=== PATIENT | female | born 1970 | race Asian ===

== ENCOUNTER 2023-05-07 08:27 | Emergency (ER) | payer MEDICARE, SELFPAY ==
[2023-05-07 08:32] VITALS: BP 108/82; PULSE 84; RESP 16; TEMP 36.8; O2SAT 98; BMI 30.9
--- NOTE | 2023-05-07 08:48 | PC.NURSE ---
Pt requesting the DrAngela to evaluate her meds and adjust them. I informed Dr. Umana of this request
--- NOTE | 2023-05-07 08:56 | ED_ITS ---
HPI - Psych General Chief Complaint: Psychiatric Symptoms Stated Complaint: mental health/ BIpolar Time Seen by Provider: 05/07/23 08:30 Source: patient and family Mode of arrival: Ambulatory History of Present Illness HPI Narrative: 52-year-old female with reported history of bipolar depression, PTSD, anxiety presents with total body pain, rectal pain, I think I'm having kerri. Patient was at [facility] several days ago for same, she states that they were looking for placement for her, but I couldn't wait anymore and she left. She is here today to request a change in her medications. She takes Prazosin, Klonopin, Trazodone, Seroquel, Depakote. Reports compliance with her medications. Denies suicidal or homicidal ideation. Patient did sleep last night after taking her usual medications. Related Data Allergies Allergy/AdvReac Type Severity Reaction Status Date / Time No Known Drug Allergies Allergy Verified 05/07/23 08:38 Review of Systems Review of Systems Narrative: Negative except as noted above Patient History Social History Smoking Status: Current some day smoker Smoking Status: Current some day smoker alcohol intake frequency: a few times a month Substance Use Type: does not use Exam Initial Vital Signs Initial Vital Signs: Vital Signs Temperature 98.2 F 05/07/23 08:32 Pulse Rate 84 05/07/23 08:32 Respiratory Rate 16 05/07/23 08:32 Blood Pressure 108/82 05/07/23 08:32 Pulse Oximetry 98 05/07/23 08:32 Oxygen Delivery Method Room Air 05/07/23 08:32 Const: Awake, alert, no acute distress, nontoxic appearing Eyes: PERRL, EOMI, conjunctiva normal ENT: Atraumatic, dentition normal, mucous membranes moist Cardiac: regular rate, regular rhythm RESP: unlabored, clear bilaterally, no wheezing GI: Atraumatic, soft, nontender, nondistended, no rebound, no guarding MSK: Atraumatic, full range of motion, pulses equal Skin: Warm, Dry, intact, no rashes Neuro: AO x3, CN II-XII grossly intact, moves all extremities Psych: flat affect, mood normal, speech not pressured, does not appear to respond to internal stimuli, not suicidal, not homicidal Course Course Course Narrative: Patient requesting psychiatric medication changes. Was previously in line for voluntary psychiatric placement but left because she was dissatisfied with the wait time at another hospital. Patient takes numerous psychiatric medications including Seroquel, Depakote, Abilify, prazosin, trazodone, Klonopin. With patient's history I can not in good confidence adjust these medications appropriately for the patient as this is outside of my scope of practice. We do not have tele psychiatry here, however social work agrees to speak with the patient. Orders Ordered: ED Orders 05/07/23 08:58 EKG-12 Lead Stat 05/07/23 08:59 Refer to [facility] Urgent 05/07/23 09:01 Consult to HOUSE CARPENTER HELPER - Sap Functional Analyst Urgent 05/07/23 09:10 Acetaminophen Stat CBC Auto Diff [Complete Blood Count AUTO DIFF] Stat CMP [Comprehensive Metabolic Panel] Stat Ethanol (ETOH) Stat Salicylate Stat TSH [Thyroid Stimulating Hormone] Stat 05/07/23 09:45 Urine Drug Screen, Rapid Stat 05/07/23 09:55 COVID19 -Nasal RAPID Stat Urine Microscopic Stat Reevaluation(s) Reevaluation #1: Patient is COVID-19 positive. She was COVID-19 negative several days ago, she states that in the days since she was seen at [facility] she went to numerous public places where she may have contracted COVID. Unfortunately due to her COVID-19 positive status we will not be able to place the patient in any inpatient psychiatric facility. Social work was able to provide resources to the patient and help to ensure a follow up appointment with primary care physician. Social work able to arrange a next a telehealth visit. Patient discharged home in safe and stable condition. Vital Signs Vital signs: Vital Signs - 8 hr 05/07/23 08:32 Temperature 98.2 F Pulse Rate 84 Respiratory Rate 16 Blood Pressure 108/82 Pulse Oximetry 98 Oxygen Delivery Method Room Air MDM - Psych Lab Data 05/07/23 09:10 05/07/23 09:10 Labs: Lab Results 05/07/23 05/07/23 05/07/23 Range/Units 09:10 09:45 09:55 WBC 9.6 (4.5-11.0) X10^3/uL RBC 4.16 (4.0-5.2) X10^6/uL Hgb 13.3 (12.0-16.0) g/dL Hct 38.3 (36-46) % MCV 92.1 (80-100) fL MCH 32.0 (26-34) PG MCHC 34.7 (30-36) % RDW 13.1 (11.6-14.8) % Plt Count 277 (150-400) X10^3/uL Neut % (Auto) 85.3 H (50-75) % Lymph % (Auto) 10.0 L (25-40) % [place] % (Auto) 3.8 (3-14) % Eos % (Auto) 0.5 L (2-4) % Baso % (Auto) 0.4 (0-2) % Neut # (Auto) 8200 H (5065-3711) /uL Lymph # (Auto) 1000 L (6481-6784) /uL [place] # (Auto) 400 (0-900) /uL Eos # (Auto) 100 (0-450) /uL Baso # (Auto) 0 (0-100) /uL Sodium 132 L (137-145) mmol/L Potassium 4.1 (3.4-5.1) mmol/L Chloride 102 (98-107) mmol/L Carbon Dioxide 22 (22-32) mmol/L BUN 12 (7-17) mg/dL Creatinine 0.82 (0.52-1.04) mg/dL Estimated GFR > 60 (>60) mL/min BUN/Creatinine Ratio 14.6 (6-22) Glucose 137 H (70-100) mg/dL Calcium 9.6 (8.4-10.2) mg/dL Total Bilirubin 0.6 (0.2-1.3) mg/dL AST 33 (14-36) IU/L ALT 15 (<35) IU/L Alkaline Phosphatase 48 (38-126) U/L Total Protein 7.3 (6.3-8.2) g/dL Albumin 4.1 (3.5-5.0) g/dL Globulin 3.2 (1.7-4.1) g/dL Albumin/Globulin Ratio 1.3 (1.0-2.8) TSH 0.685 (0.47-4.68) uIU/mL Urine RBC None seen (0-5/HPF) Urine WBC None seen (0-5/HPF) Ur Squamous Epith Cells 1-5 /hpf (0-5/HPF) Amorphous Sediment 1+ Urine Bacteria None seen (None) Ur Culture Indicated? Cult not indicated Salicylates < 1.0 (<20) mg/dL U Opiates 300ng/mL cut Negative (Negative) Ur Oxycodone Screen Negative (Negative) Urine Methadone Screen Negative (Negative) Acetaminophen < 10 (10-30) ug/mL Ur Barbiturates Screen Negative (Negative) U Tricyclic Antidepress Positive H (Negative) Ur Phencyclidine Scrn Negative (Negative) Ur Amphetamines Screen Negative (Negative) U Methamphetamines Scrn Negative (Negative) Ur MDMA Scrn (Ecstasy) Negative (Negative) U Benzodiazepines Scrn Negative (Negative) Urine Cocaine Screen Negative (Negative) U Marijuana (THC) Screen Negative (Negative) Ethyl Alcohol < 10 ( - 10) mg/dL SARS-CoV-2 (PCR) Positive H (Negative) Point of Care Testing Test Results Negative Urine Dip Bedside Urine Glucose Negative Bedside Urine Bilirubin - Negative Bedside Urine Ketone +/- 5 Urine Specific [place] 1.005 Bedside Urine Occult Blood - Negative Bedside Urine pH 9 Bedside Urine Protein + 30 Bedside Urine Urobilinogen - Negative Bedside Urine Nitrite - Negative Bedside Urine Leukocytes - Negative Esterase Discharge Plan Departure Patient Disposition: Home Clinical Impression: Bipolar disorder Qualifiers: Active/Remission status: remission status unspecified Qualified Code(s): F31.9 - Bipolar disorder, unspecified Instructions: DI for Bipolar Disorder Referrals: China Arguelles PA-C [Primary Care Provider] - Stand Alone Forms: Patient Portal/API
[2023-05-07 09:21] LABS: Add Manual Diff / Slide Review NO; Basophils Absolute Auto 0 /uL (0-100); Basophils Percent Auto 0.4 % (0-2); Eosinophils Absolute Auto 100 /uL (0-450); Eosinophils Percent Auto 0.5 % (2-4); Hematocrit 38.3 % (36-46); Hemoglobin 13.3 g/dL (12.0-16.0); Lymphocytes Absolute Auto 1000 /uL (1100-4500); Mean Corpuscular HGB Conc 34.7 % (30-36); Mean Corpuscular Volume 92.1 fL (80-100); Monocytes Absolute Auto 400 /uL (0-900); Monocytes Percent Auto 3.8 % (3-14); Neutrophils Absolute Auto 8200 /uL (1500-7000); Neutrophils Percent Auto 85.3 % (50-75); Platelet Count 277 X10^3/uL (150-400); Red Blood Cell Count 4.16 X10^6/uL (4.0-5.2); Red Cell Distribution Width 13.1 % (11.6-14.8); White Blood Cell Count 9.6 X10^3/uL (4.5-11.0)
[2023-05-07 09:30] LABS: Acetaminophen < 10 ug/mL (10-30); Alanine Aminotransferase 15 IU/L (<35); Albumin 4.1 g/dL (3.5-5.0); Albumin Globulin Ratio 1.3 (1.0-2.8); Alkaline Phosphatase 48 U/L (38-126); Aspartate Aminotransferase 33 IU/L (14-36); BUN Creatinine Ratio 14.6 (6-22); Bilirubin Total 0.6 mg/dL (0.2-1.3); Blood Urea Nitrogen 12 mg/dL (7-17); Calcium 9.6 mg/dL (8.4-10.2); Carbon Dioxide 22 mmol/L (22-32); Chloride 102 mmol/L (98-107); Estimated Glomerular Filt Rate > 60 mL/min (>60); Ethanol (ETOH) < 10 mg/dL; Globulin 3.2 g/dL (1.7-4.1); Glucose 137 mg/dL (70-100); HEMOLYSIS 85 (0-50); Potassium 4.1 mmol/L (3.4-5.1); Salicylate < 1.0 mg/dL (<20); Sodium 132 mmol/L (137-145); Total Protein 7.3 g/dL (6.3-8.2)
[2023-05-07 09:52] LABS: UR Morphine/Opiate cutoff 300 Negative (Negative); Ur Creatinine Normal (Normal); Ur Specific Gravity Normal (Normal); Urine Amphetamines Negative (Negative); Urine Barbiturates Negative (Negative); Urine Benzodiazepines Negative (Negative); Urine Cocaine Negative (Negative); Urine MDMA Negative (Negative); Urine Methadone Negative (Negative); Urine Methamphetamines Negative (Negative); Urine Oxycodone Negative (Negative); Urine Phencyclidine Negative (Negative); Urine Tetrahydrocannabinol Negative (Negative); Urine Tricyclic Antidepressant Positive (Negative); Urine pH Normal (Normal)
[2023-05-07 10:00] LABS: Bacteria Urine None Seen; Culture Indicated Urine Cult Not Indicated; RBC Urine None Seen (0-5/HPF); Squamous Epithelial Cell Urine 1-5 /HPF (0-5/HPF); WBC Urine None Seen (0-5/HPF)
[2023-05-07 10:01] LABS: Amorphous Sediment Urine 1+
[2023-05-07 10:03] LABS: Thyroid Stimulating Hormone 0.685 uIU/mL (0.47-4.68)
[2023-05-07 10:43] LABS: COVID19 -Nasal RAPID POSITIVE (Negative)
[2023-05-07 13:35] VITALS: BP 112/76; PULSE 90; RESP 18; O2SAT 98
--- NOTE | 2023-05-07 13:54 | CM.SWNOTE ---
ED IRON PILER Assessment Note Patient is 52 y/o female who presents to ED due to concern for Bipolar Symptoms. Patient endorses she went to [facility] ED last week for simliar presentation and was seeking inpatient but patient left ED before being placed. At this presentation to the ED, patient tests positive for Covid and will not be accepted at hospitals. IRON PILER enters room to meet with patient. Present in room is patient's brother, patient gives consent for him to be present. Patient presents as A/Ox4, euthymic, full range. Patient endorses concern for PTSD, memories and thoughts coming up and concern for her medication management. Patient endorses that her therapist no longer takes her insurance because her insurance changed recently. Patient denies SI or HI. Patient states that she has an upcoming PCP appt at [facility] for 05/09/23 regarding medication management. Patient endorses that she planned to cancel the appt due to covid dx. IRON PILER encourages patient to keep appt and request a telehealth appt. IRON PILER calls [facility] with patient's consent to request telehealth appt. It is reported that they can schedule telehealth appt with patient's PCP for Thursday 05/10. IRON PILER reviews this with patient who indicates agreement and understanding. Patient endorses safety upon d/c and states she can rest at home and recover from covid symptoms and f/u with PCP via telehealth. IRON PILER provides patient with list of MH providers that accept her insurance. It is the opinion of this IRON PILER that patient is safe to d/c to home. ED provider indicates agreement and understanding. Plan: Patient to d/c to home upon medical clearance, patient to f/u with PCP and patient to seek new MH provider. SANDRA SotoSW
== END 2023-05-07 13:36 | disposition home or self-care (01) ==
PROVIDERS: Emergency Provider Emergency Medicine; PCP Physician Assistant
DX: F31.9 Bipolar disorder, unspecified (principal); K62.89 Other specified diseases of anus and rectum; U07.1 COVID-19
CPT/HCPCS: 80053; 80305; 80320; 80329; 81003; 81015; 81025; 84443; 85025; 87635; 99283; C9803; G0480

== ENCOUNTER 2023-05-24 11:45 | Emergency (ER) | payer MEDICARE, SELFPAY ==
[2023-05-24 11:48] VITALS: BP 128/98; PULSE 103; RESP 18; TEMP 36.4; O2SAT 97; BMI 29.7
[2023-05-24 12:22] LABS: Ur Creatinine Normal (Normal); Ur Specific Gravity Normal (Normal); Urine pH Normal (Normal)
[2023-05-24 12:23] LABS: UR Morphine/Opiate cutoff 300 Negative (Negative); Urine Amphetamines Negative (Negative); Urine Barbiturates Negative (Negative); Urine Benzodiazepines Negative (Negative); Urine Cocaine Negative (Negative); Urine MDMA Negative (Negative); Urine Methadone Negative (Negative); Urine Methamphetamines Negative (Negative); Urine Oxycodone Negative (Negative); Urine Phencyclidine Negative (Negative); Urine Tetrahydrocannabinol Negative (Negative); Urine Tricyclic Antidepressant Positive (Negative)
[2023-05-24 12:24] LABS: COVID19 -Nasal RAPID Negative (Negative)
--- NOTE | 2023-05-24 12:33 | ED_ITS ---
HPI - Psych General Chief Complaint: Psychiatric Symptoms Stated Complaint: needs treatment for mental health issues Time Seen by Provider: 05/24/23 11:55 Source: patient Mode of arrival: Ambulatory History of Present Illness HPI Narrative: Patient is a 52-year-old female. Has a history of PTSD, anxiety, schizophrenia and bipolar disorder. She is been admitted to the hospital multiple times in the past. All of her medication management right now is being handled by her primary doctor whom she saw by dontrell approximately 2 weeks ago. She states that for the past several weeks she is had escalation in the auditory hallucinations and the crying and depression and anxiety. She is not suicidal. Not homicidal. She does not currently have a therapist or a psychiatrist. She stated that her psychiatrist left the practice that she was seeing and her insurance no longer covers the therapist she is to be seeing. She was seen here in the emergency department 2 weeks ago. She was COVID positive so could not be placed anywhere. Subsequently discharged home. She stated that she attempted to contact multiple numbers on the information that she was provided by us for follow-up for mental health but has not heard a call back from any of those facilities. She states that the voices are becoming more intrusive. They are telling her that she is both God, Louis, Vandana and other medical characters. She is very much hoping for admission to the hospital for treatment of her symptoms as they are becoming very distressing for her. Related Data Home Medications Medication Instructions Recorded Confirmed clonazepam 0.5 mg tablet 0.5 mg PO BEDTIME 05/24/23 05/24/23 divalproex 500 mg tablet,extended 1,000 mg PO ONCE PM 05/24/23 05/24/23 release 24 hr ferrous sulfate 325 mg (65 mg 325 mg PO QPM 05/24/23 05/24/23 iron) tablet magnesium 200 mg tablet 800 mg PO QPM 05/24/23 05/24/23 metformin 500 mg tablet,extended 500 mg PO QPM 05/24/23 05/24/23 release 24 hr potassium 99 mg tablet 99 mg PO QPM 05/24/23 05/24/23 prazosin 2 mg capsule 4 mg PO QPM 05/24/23 05/24/23 quetiapine 150 mg tablet,extended 150 mg PO QPM 05/24/23 05/24/23 release 24 hr rosuvastatin 5 mg tablet 5 mg PO ONCE PM 05/24/23 05/24/23 trazodone 150 mg tablet 150 mg PO ONCE PM PRN insomnia 05/24/23 05/24/23 Allergies Allergy/AdvReac Type Severity Reaction Status Date / Time No Known Drug Allergies Allergy Verified 05/07/23 08:38 Review of Systems Cardiovascular Comments: Denies chest pain Respiratory Comments: Denies shortness of breath Gastrointestinal Comments: Denies abdominal pain Psychiatric Psychiatric: Reports system reviewed and no additional complaints, except as documented Patient History Social History Smoking Status: Current some day smoker Smoking Status: Current some day smoker tobacco type: cigars alcohol intake frequency: a few times a month Substance Use Type: does not use Exam Initial Vital Signs Initial Vital Signs: Vital Signs Temperature 97.5 F L 05/24/23 11:48 Pulse Rate 103 H 05/24/23 11:48 Respiratory Rate 18 05/24/23 11:48 Blood Pressure 128/98 H 05/24/23 11:48 Pulse Oximetry 97 05/24/23 11:48 Oxygen Delivery Method Room Air 05/24/23 11:48 HENMT Head: normal to inspection and normocephalic Resp Effort & Inspection: normal respiratory effort Cardio Rate: regular rate GI Inspection: normal to inspection Neuro General: patient alert, patient awake, patient oriented x3 and moves all extremities Psych Other: Patient is cooperative, calm, is having auditory hallucinations, no suicidal or homicidal thoughts. Course Orders Ordered: ED Orders 05/24/23 12:00 COVID19 -Nasal RAPID Stat 05/24/23 12:09 Consult to EXECUTIVE RECEPTIONIST - Camera Person Stat 05/24/23 12:17 Urine Drug Screen, Rapid Stat 05/24/23 12:45 Acetaminophen Stat Complete Blood Count AUTO DIFF Stat Comprehensive Metabolic Panel Stat Ethanol (ETOH) Stat Free T4, Direct Thyroxine Stat Salicylate Stat Thyroid Stimulating Hormone Stat Valproic Acid (Depakene) Total Stat Vital Signs Vital signs: Vital Signs - 8 hr 05/24/23 11:48 Temperature 97.5 F L Pulse Rate 103 H Respiratory Rate 18 Blood Pressure 128/98 H Pulse Oximetry 97 Oxygen Delivery Method Room Air MDM - Psych Lab Data 05/24/23 12:45 05/24/23 12:45 Labs: Lab Results 05/24/23 05/24/2323 Range/Units 12:00 12:17 12:45 WBC 7.8 (4.5-11.0) X10^3/uL RBC 3.91 L (4.0-5.2) X10^6/uL Hgb 12.6 (12.0-16.0) g/dL Hct 36.2 (36-46) % MCV 92.6 (80-100) fL MCH 32.2 (26-34) PG MCHC 34.7 (30-36) % RDW 13.0 (11.6-14.8) % Plt Count 258 (150-400) X10^3/uL Neut % (Auto) 71.7 (50-75) % Lymph % (Auto) 18.8 L (25-40) % [place] % (Auto) 6.6 (3-14) % Eos % (Auto) 2.3 (2-4) % Baso % (Auto) 0.6 (0-2) % Neut # (Auto) 5600 (3648-0449) /uL Lymph # (Auto) 1500 (3127-7296) /uL [place] # (Auto) 500 (0-900) /uL Eos # (Auto) 200 (0-450) /uL Baso # (Auto) 0 (0-100) /uL Sodium 136 L (137-145) mmol/L Potassium 3.9 (3.4-5.1) mmol/L Chloride 102 (98-107) mmol/L Carbon Dioxide 25 (22-32) mmol/L BUN 14 (7-17) mg/dL Creatinine 0.93 (0.52-1.04) mg/dL Estimated GFR > 60 (>60) mL/min BUN/Creatinine Ratio 15.1 (6-22) Glucose 127 H (70-100) mg/dL Calcium 9.3 (8.4-10.2) mg/dL Total Bilirubin 0.5 (0.2-1.3) mg/dL AST 18 (14-36) IU/L ALT 13 (<35) IU/L Alkaline Phosphatase 51 (38-126) U/L Total Protein 6.9 (6.3-8.2) g/dL Albumin 3.9 (3.5-5.0) g/dL Globulin 3.0 (1.7-4.1) g/dL Albumin/Globulin Ratio 1.3 (1.0-2.8) TSH 1.76 D (0.47-4.68) uIU/mL Free T4 1.22 (0.78-2.19) ng/dL Salicylates < 1.0 (<20) mg/dL U Opiates 300ng/mL cut Negative (Negative) Ur Oxycodone Screen Negative (Negative) Urine Methadone Screen Negative (Negative) Acetaminophen < 10 (10-30) ug/mL Ur Barbiturates Screen Negative (Negative) U Tricyclic Antidepress Positive H (Negative) Ur Phencyclidine Scrn Negative (Negative) Ur Amphetamines Screen Negative (Negative) U Methamphetamines Scrn Negative (Negative) Ur MDMA Scrn (Ecstasy) Negative (Negative) U Benzodiazepines Scrn Negative (Negative) Urine Cocaine Screen Negative (Negative) U Marijuana (THC) Screen Negative (Negative) Ethyl Alcohol < 10 ( - 10) mg/dL SARS-CoV-2 (PCR) Negative (Negative) Point of Care Testing Test Results Negative Urine Dip Bedside Urine Glucose Negative Bedside Urine Bilirubin - Negative Bedside Urine Ketone - Negative Urine Specific [place] 1.015 Bedside Urine Occult Blood - Negative Bedside Urine pH 6.5 Bedside Urine Protein - Negative Bedside Urine Urobilinogen +/- 1mg Bedside Urine Nitrite - Negative Bedside Urine Leukocytes - Negative Esterase MDM Narrative Medical decision making narrative: Patient is calm, cooperative, does endorse auditory hallucinations. No SI or HI. Was seen by social work. She is medically cleared. Was accepted at [facility]. Patient is stable for discharge. Continues to be voluntary. Discharge Plan Departure Patient Disposition: Xfer Psychiatric Hosp Clinical Impression: Bipolar disorder, Auditory hallucinations Prescriptions: No Action clonazepam 0.5 mg tablet 0.5 mg PO BEDTIME trazodone 150 mg tablet 150 mg PO ONCE PM PRN (Reason: insomnia) divalproex 500 mg tablet extended release 24 hr 1,000 mg PO ONCE PM metformin 500 mg Tablet Extended Release 24 Hr 500 mg PO QPM prazosin 2 mg Capsule 4 mg PO QPM rosuvastatin 5 mg tablet 5 mg PO ONCE PM quetiapine 150 mg tablet extended release 24 hr 150 mg PO QPM potassium 99 mg Tablet 99 mg PO QPM ferrous sulfate [FerrouSul] 325 mg (65 mg iron) Tablet 325 mg PO QPM magnesium 200 mg Tablet 800 mg PO QPM Referrals: China Arguelles PA-C [Primary Care Provider] -
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
[2023-05-24 12:50] LABS: Add Manual Diff / Slide Review NO; Basophils Absolute Auto 0 /uL (0-100); Basophils Percent Auto 0.6 % (0-2); Eosinophils Absolute Auto 200 /uL (0-450); Eosinophils Percent Auto 2.3 % (2-4); Hematocrit 36.2 % (36-46); Hemoglobin 12.6 g/dL (12.0-16.0); Lymphocytes Absolute Auto 1500 /uL (1100-4500); Lymphocytes Percent Auto 18.8 % (25-40); Mean Corpuscular HGB Conc 34.7 % (30-36); Mean Corpuscular Hemoglobin 32.2 PG (26-34); Mean Corpuscular Volume 92.6 fL (80-100); Monocytes Absolute Auto 500 /uL (0-900); Monocytes Percent Auto 6.6 % (3-14); Neutrophils Absolute Auto 5600 /uL (1500-7000); Neutrophils Percent Auto 71.7 % (50-75); Platelet Count 258 X10^3/uL (150-400); Red Blood Cell Count 3.91 X10^6/uL (4.0-5.2); White Blood Cell Count 7.8 X10^3/uL (4.5-11.0)
[2023-05-24 13:02] LABS: Acetaminophen < 10 ug/mL (10-30); Alanine Aminotransferase 13 IU/L (<35); Albumin 3.9 g/dL (3.5-5.0); Albumin Globulin Ratio 1.3 (1.0-2.8); Alkaline Phosphatase 51 U/L (38-126); Aspartate Aminotransferase 18 IU/L (14-36); BUN Creatinine Ratio 15.1 (6-22); Bilirubin Total 0.5 mg/dL (0.2-1.3); Blood Urea Nitrogen 14 mg/dL (7-17); Calcium 9.3 mg/dL (8.4-10.2); Carbon Dioxide 25 mmol/L (22-32); Chloride 102 mmol/L (98-107); Estimated Glomerular Filt Rate > 60 mL/min (>60); Ethanol (ETOH) < 10 mg/dL; Glucose 127 mg/dL (70-100); HEMOLYSIS < 15 (0-50); Potassium 3.9 mmol/L (3.4-5.1); Salicylate < 1.0 mg/dL (<20); Sodium 136 mmol/L (137-145); Total Protein 6.9 g/dL (6.3-8.2)
[2023-05-24 13:18] LABS: Free T4, Direct Thyroxine 1.22 ng/dL (0.78-2.19)
[2023-05-24 13:32] LABS: Thyroid Stimulating Hormone 1.76 uIU/mL (0.47-4.68)
--- NOTE | 2023-05-24 14:29 | CM.SWNOTE ---
GLOST TILE SHADER Note GLOST TILE SHADER calls [facility] intake, it is reported that they have beds and can review patient. GLOST TILE SHADER faxes clinicals for review. [place] calls back and Penelope in intake reports that patient has been accepted by JAMIE Dunn at the [facility]. Patient can arrive at hospital at 1999, RN to RN ph. # is [phone]. GLOST TILE SHADER reviews this with patient who indicates agreement and understanding. GLOST TILE SHADER sets up transportation for 1845 warehouse picker time. Plan: Patient to transfer to [facility] for inpatient hospitalization this evening. SANDRA SotoSW
[2023-05-24 18:46] VITALS: BP 135/76; PULSE 107; RESP 18; O2SAT 97
[2023-05-25 04:53] LABS: Valproic Acid (Depakene) Total 58 ug/mL (50-100)
== END 2023-05-24 18:53 ==
PROVIDERS: Emergency Provider Emergency Medicine; PCP Physician Assistant
DX: F31.9 Bipolar disorder, unspecified (principal); R44.0 Auditory hallucinations; Z11.52 Encounter for screening for COVID-19
CPT/HCPCS: 36415; 80053; 80164; 80305; 80320; 80329; 81003; 81025; 84439; 84443; 85025; 87635; 99283; C9803; G0480